=== PATIENT | male | born 1955 | race Caucasian/White ===

== ENCOUNTER 2021-12-22 14:49 | Inpatient (IN) | payer MEDICARE ==
[~2021-12-22] VITALS: Ht 180.3 cm; Wt 141.5 kg
[2021-12-22 15:35] LABS: HEMOGLOBIN 15.3 gm/dl (14.0-17.5); RED BLOOD COUNT 5.03 M/UL (4.20-5.50); WHITE BLOOD COUNT 7.5 K/UL (4.5-11.0)
[2021-12-22] MEDS ORDERED: FARXIGA10 MG PO (21:14)
[2021-12-22] MEDS ORDERED: KLOR-CON M1515 MEQ PO (21:15)
[2021-12-22] MEDS ORDERED: NEURONTIN600 MG PO (21:15)
[2021-12-22] MEDS ORDERED: LIPITOR TAB 2020 MG PO (21:16)
[2021-12-22] MEDS ORDERED: ZYLOPRIM 300 M300 MG PO (21:16)
[2021-12-22] MEDS ORDERED: LASIX20 MG PO (21:17)
[2021-12-22] MEDS ORDERED: GLUCOPHAGE 500500 MG PO (21:18)
[2021-12-22] MEDS ORDERED: OMEPRAZOLE20 MG PO (21:18)
[2021-12-22] MEDS ORDERED: ZAROXOLYN/DIUL2.5 MG PO (21:18)
[2021-12-23 03:28] LABS: HEMOGLOBIN 14.5 gm/dl (14.0-17.5); RED BLOOD COUNT 4.72 M/UL (4.20-5.50); WHITE BLOOD COUNT 8.3 K/UL (4.5-11.0)
[2021-12-24 03:00] LABS: HEMOGLOBIN 15.2 gm/dl (14.0-17.5); RED BLOOD COUNT 4.99 M/UL (4.20-5.50); WHITE BLOOD COUNT 7.7 K/UL (4.5-11.0)
[2021-12-24] MEDS ORDERED: LASIX20 MG PO (13:06)
[2021-12-24] MEDS ORDERED: ASPIRIN EC81 MG PO (13:16)
== END 2021-12-24 14:25 | disposition home or self-care (01) | DRG 309 ==
LOC: ER1 14:49 → PROG CARE 18:27 → CDU 18:27 → PROG CARE 12-23 08:19
PROVIDERS: Emergency Medicine; ADMIT Internal Medicine
PROC: B24BZZZ Ultrasonography of Heart with Aorta (ICD-10-PCS; principal; 2021-12-23)
DX: I45.10 Unspecified right bundle-branch block (principal); Z68.41 Body mass index [BMI] 40.0-44.9, adult; E78.5 Hyperlipidemia, unspecified; I12.9 Hypertensive chronic kidney disease with stage 1 through stage 4 chronic kidney disease, or unspecified chronic kidney disease; N18.30 Chronic kidney disease, stage 3 unspecified; Z20.822 Contact with and (suspected) exposure to COVID-19; E11.22 Type 2 diabetes mellitus with diabetic chronic kidney disease; G89.29 Other chronic pain; M51.36 Other intervertebral disc degeneration, lumbar region; E87.6 Hypokalemia; E66.01 Morbid (severe) obesity due to excess calories; Z96.698 Presence of other orthopedic joint implants; M48.02 Spinal stenosis, cervical region; M54.9 Dorsalgia, unspecified; Z79.01 Long term (current) use of anticoagulants; Z79.82 Long term (current) use of aspirin; Z87.11 Personal history of peptic ulcer disease; Z82.49 Family history of ischemic heart disease and other diseases of the circulatory system; Z83.3 Family history of diabetes mellitus; Z84.0 Family history of diseases of the skin and subcutaneous tissue; Z98.1 Arthrodesis status; Z88.0 Allergy status to penicillin; Z88.2 Allergy status to sulfonamides
CPT/HCPCS: ECHO; 0240U; 36415; 70450; 71045; 80053; 80061; 82533; 82550; 82553; 82962; 83036; 84439; 84443; 84484; 85025; 85379; 93005; 93270; 93306; 93880; 99285; J1940